=== PATIENT | male | born 1960 | race African-American/Black ===

== ENCOUNTER 2025-04-25 06:57 | Emergency (ER) | payer BC, MEDICAID ==
[~2025-04-25] VITALS: Ht 172.7 cm; Wt 91.0 kg
[2025-04-25 06:58] VITALS: BP 148/94; PULSE 84; RESP 18; O2SAT 97
[2025-04-25 07:44] LABS: BASOPHILS % 0.6 % (0.0-2.0); EOSINOPHILS % 0.7 % (0.0-5.0); HEMATOCRIT. 47.2 % (42.0-52.0); HEMOGLOBIN. 15.8 g/dL (14.0-18.0); LYMPHOCYTES % 33.4 % (20.0-50.0); MEAN PLATELET VOLUME 7.1 fl (7.4-10.4); MONOCYTES % 5.3 % (2.0-8.0); NEUTROPHILS % 60.0 % (40.0-76.0); PLATELET 241 x1000/uL (130-400); RED BLOOD CELL COUNT 5.19 mill/uL (4.7-6.1); RED CELL DISTRIBUTION WIDTH 13.3 % (11.6-14.6)
[2025-04-25 08:01] VITALS: TEMP 98.2
[2025-04-25 08:01] LABS: CREATININE 1.1 mg/dL (0.6-1.3)
[2025-04-25] MEDS: ONDANSETRON 4MG ODT PO ONE (08:01)
[2025-04-25] MEDS: ACETAMINOPHEN 325MG TABLET PO ONE (08:01)
[2025-04-25 08:02] LABS: UREA NITROGEN BLOOD 13 mg/dL (9-23)
[2025-04-25 08:03] LABS: ASPARTATE AMINOTRANSFERASE 20 IU/L (<34)
[2025-04-25 08:04] LABS: BILIRUBIN DIRECT 0.3 mg/dL (<=3.0); BILIRUBIN TOTAL 1.2 mg/dL (0.1-1.0); PROTEIN TOTAL 7.6 g/dL (6.0-8.3)
[2025-04-25] MEDS ORDERED: ONDA-239 PO (10:16)
[2025-05-14] MEDS ORDERED: ALLO100T MT (09:39)
[2025-05-14] MEDS ORDERED: TAMS-54 PO (10:04)
[2025-05-14] MEDS ORDERED: SACU1TAB PO (10:07)
[2025-05-19] MEDS ORDERED: APIX5TAB MT (12:58)
== END 2025-04-25 10:31 | disposition home or self-care (01) ==
LOC: ER 06:57
DX: R10.84 Generalized abdominal pain (principal); J44.9 Chronic obstructive pulmonary disease, unspecified; M10.9 Gout, unspecified
CPT/HCPCS: 99284; 74176; 80076; 80048; 83690; 85025; 36415; Q0162

== ENCOUNTER 2025-05-07 15:34 | Emergency (ER) | payer MEDICAID ==
[~2025-05-07] VITALS: Ht 180.3 cm; Wt 77.0 kg
[~2025-05-07 15:34] MED LIST: ONDA-239 PO
[2025-05-07 16:16] LABS: BASOPHILS % 1.4 % (0.0-2.0); EOSINOPHILS % 3.9 % (0.0-5.0); HEMATOCRIT. 43.6 % (42.0-52.0); HEMOGLOBIN. 14.4 g/dL (14.0-18.0); LYMPHOCYTES % 35.7 % (20.0-50.0); MEAN PLATELET VOLUME 7.4 fl (7.4-10.4); MONOCYTES % 9.5 % (2.0-8.0); NEUTROPHILS % 49.5 % (40.0-76.0); PLATELET 228 x1000/uL (130-400); RED BLOOD CELL COUNT 4.73 mill/uL (4.7-6.1); RED CELL DISTRIBUTION WIDTH 13.7 % (11.6-14.6)
[2025-05-07 16:28] LABS: CREATININE 1.3 mg/dL (0.6-1.3)
[2025-05-07 16:29] LABS: PROTEIN TOTAL 6.9 g/dL (6.0-8.3); UREA NITROGEN BLOOD 17 mg/dL (9-23)
[2025-05-07 16:30] LABS: ASPARTATE AMINOTRANSFERASE 16 IU/L (<34); TROPONIN I HIGH SENSITIVITY 15 ng/L (3.0-53)
[2025-05-07 16:31] LABS: BILIRUBIN DIRECT 0.1 mg/dL (<=3.0); BILIRUBIN TOTAL 0.4 mg/dL (0.1-1.0)
[2025-05-07] MEDS ORDERED: METHYLPREDNISOLONE 40MG/ML INJ IV ONE (17:00)
[2025-05-07] MEDS: METHYLPREDNISOLONE SOD SUCC 125MG/2ML (ACT-O-VIAL) IV NR (17:20)
[2025-05-07] MEDS: ALBUTEROL (0.083%) 2.5MG/3ML NEB HHN ONE (17:36)
[2025-05-07 17:37] VITALS: PULSE 63; RESP 18; O2SAT 97
[2025-05-07] MEDS ORDERED: P50 MT (18:20)
[2025-05-07] MEDS ORDERED: ALBU18HF2 IH (18:20)
[2025-05-07 18:36] VITALS: BP 130/66; PULSE 75; RESP 25; TEMP 36.8; O2SAT 99
[2025-05-14] MEDS ORDERED: ALLO100T MT (09:39)
[2025-05-14] MEDS ORDERED: TAMS-54 PO (10:04)
[2025-05-14] MEDS ORDERED: SACU1TAB PO (10:07)
[2025-05-19] MEDS ORDERED: APIX5TAB MT (12:58)
== END 2025-05-07 18:41 | disposition home or self-care (01) ==
LOC: ER 15:34
DX: J44.1 Chronic obstructive pulmonary disease with (acute) exacerbation (principal); Z79.899 Other long term (current) drug therapy
CPT/HCPCS: 99285; 96374; 71045; 80076; 80048; 83880; 85025; 84484; 36415; 94640; 93005; J2919; 94070